=== PATIENT | male | born 1935 | race Caucasian/White ===

== ENCOUNTER 2017-07-18 05:45 | Emergency (ER) | payer OTHER ==
[2017-07-18 06:03] VITALS: BP 138/72; TEMP 98.1; O2SAT 97
--- NOTE | 2017-07-18 06:30 | ED.PDOC ---
History of Present Illness - General Chief Complaint: General Stated Complaint: feels terrible, thinks he's dehydrated Time Seen by Provider: 07/18/17 06:07 Source: patient Exam Limitations: clinical condition - History of Present Illness Initial Comments: the patient is a 81-year-old male presenting to the emergency room secondary to symptoms of urinary frequency starting yesterday at around p.m. He reports he is having to urinate every 10-15 minutes. He does report some dysuria. No fevers. No back pain. He did tell the nurses that he had some diarrhea but he told me that he did not. He is unsure of his medications. We have no significant records on him here. He does seem to remember some of his medical problems. I'm uncertain at this time what medical history he is leaving out or simply remembering wrong. He reports he has not run out of any medications and that he takes more than a dozen. He does not think that he takes anything for his prostate. No history of bladder dysfunction according to him. Again there does appear to be some mild dementia at least. No fevers. Vital signs are within normal limits. Bladder ultrasound by me after voiding shows approximately 180 cc. Prostate size by transabdominal ultrasound appears to be around 70-80 cc. No back pain. No costovertebral angle tenderness. Again he reports this just started yesterday evening. No blood in the urine. Timing/Duration: unsure Severity: moderate Improving Factors: nothing Worsening Factors: nothing Associated Symptoms: denies symptoms Allergies/Adverse Reactions: Allergies NO KNOWN ALLERGY Allergy (Verified 07/18/17 06:03) Home Medications: Ambulatory Orders Aspirin 11/30/15 Coreg 11/30/15 Digoxin 11/30/15 Furosemide 11/30/15 Lisinopril 11/30/15 Metformin HCl 11/30/15 Oseltamivir Phosphate [Tamiflu] 75 mg PO BID #10 cap 11/30/15 Potassium Chloride 11/30/15 Simvastatin 11/30/15 Vitamin B 12 11/30/15 Vitamin B-6 11/30/15 Vitamin D2 11/30/15 Tamsulosin [Flomax] 0.4 mg PO QD #30 cap 07/18/17 Review of Systems - Review of Systems Constitutional: States: no symptoms reported EENTM: States: no symptoms reported Respiratory: States: no symptoms reported Cardiology: States: no symptoms reported Gastrointestinal/Abdominal: States: no symptoms reported Genitourinary: States: dysuria, frequency Musculoskeletal: States: no symptoms reported Skin: States: no symptoms reported Neurological: States: see HPI - some dementia Endocrine: States: no symptoms reported All other Systems: No Change from Baseline Past Medical History (General) - Patient Medical History Hx Seizures: No Hx Stroke: No Hx Dementia: No Hx Asthma: No Hx of COPD: No Hx Cardiac Disorders: Yes Hx Congestive Heart Failure: No Hx Pacemaker: No Hx Hypertension: No Hx Thyroid Disease: No Hx Diabetes: Yes - boarderline Hx Gastroesophageal Reflux: No Hx Renal Disease: No - hx kidney stone Hx Cancer: No Hx of HIV: No Hx Hepatitis C: No Hx MRSA: No Surgical History: other - Vaccination History Hx Tetanus, Diphtheria Vaccination: No Hx Influenza Vaccination: No Hx Pneumococcal Vaccination: No - Social History Hx Tobacco Use: Yes - quit smoking 1968 Hx Alcohol Use: No Hx Substance Use: No Hx Substance Use Treatment: No Hx Depression: No Family Medical History - Family History Mother Family History: No Known Physical Exam - Physical Exam General Appearance: Alert, Comfortable, No apparent distress Eye Exam: bilateral normal Ears, Nose, Throat: hearing grossly normal, normal ENT inspection, normal pharynx Neck: full range of motion, supple, normal inspection Respiratory: lungs clear, normal breath sounds, no respiratory distress, no accessory muscle use Cardiovascular/Chest: normal peripheral pulses, no edema, other - regular rate Peripheral Pulses: radial,right: 2+, radial,left: 2+, dorsalis pedis,right: 2+, dorsalis pedis,left: 2+ Gastrointestinal/Abdominal: non tender - no abdominal tenderness. No large amount of stool was palpable. No rebound or peritoneal signs. Bladder is not significantly enlarged by palpation. Bladder is not tender to palpation., soft Rectal Exam: deferred Back Exam: normal inspection, no CVA tenderness, no vertebral tenderness Extremity: normal range of motion, non-tender, normal inspection, no pedal edema Neurologic: book shelver II-XII nml as tested, alert, normal mood/affect, other - the patient misses the date by 3 days. Again he is given inconsistent stories between myself and my nurses Skin Exam: normal color Comments: Vital Signs - 24 hr 07/18/17 05:55 Temperature 98.1 F Pulse Rate [ 68 monitor] Respiratory 16 Rate Blood Pressure 138/72 [Left Arm] O2 Sat by Pulse 97 Oximetry Progress - Progress Progress: 07/18/17 06:40 the patient's a 81-year-old male presenting primarily secondary to urinary frequency for less in the last 24 hours. He is having an incomplete void. He is not retaining a lot of urine but he is retaining some. I believe this is due to BPH. Prostate exam shows no evidence of prostatitis but the prostate is significantly enlarged both by exam and transabdominal ultrasound. Urinalysis is clear indicating no significant infection. The patient was given his first dose of Flomax here and will be placed on that daily for the next month. He needs to follow-up with his primary care doctor when he gets back to [place]. He needs to be set up with urology for a more formal evaluation. If at any point he gets to where he cannot urinate or starts having pain in his lower abdomen due to his bladder being unable to void adequately, then he will need to return to the emergency room and have a Zapata catheter placed. he reports that he does understand this. If he does come back to this emergency room it would be helpful if he brought his medications as medications can sometimes have urinary complications. - Results/Orders Results/Orders: Laboratory Tests 07/18/17 06:16 Urine Color Yellow Urine Appearance Clear Urine pH 7.0 Ur Specific Cecil 1.010 Urine Protein Negative Urine Glucose (UA) Negative Urine Ketones Negative Urine Blood Trace-lysed H Urine Nitrite Negative Urine Bilirubin Negative Urine Urobilinogen 0.2 Ur Leukocyte Esterase Negative Urine RBC 0-1 Urine WBC 0 Ur Epithelial Cells 0 Urine Bacteria 0 Departure - Departure Clinical Impression: Benign prostatic hyperplasia with urinary frequency BPH (benign prostatic hyperplasia) Qualifiers: Lower urinary tract symptom detail: urinary frequency Disposition: Discharge to Home or Self Care Condition: Fair Departure Forms: ED Discharge - Pt. Copy, Patient Portal Self Enrollment Instructions: DI for Benign Prostatic Hyperplasia Diet: regular diet Activity: increase activity as tolerated Prescriptions: Tamsulosin [Flomax] 0.4 mg PO QD #30 cap Home Medications: Ambulatory Orders Aspirin 11/30/15 Coreg 11/30/15 Digoxin 11/30/15 Furosemide 11/30/15 Lisinopril 11/30/15 Metformin HCl 11/30/15 Oseltamivir Phosphate [Tamiflu] 75 mg PO BID #10 cap 11/30/15 Potassium Chloride 11/30/15 Simvastatin 11/30/15 Vitamin B 12 11/30/15 Vitamin B-6 11/30/15 Vitamin D2 11/30/15 Tamsulosin [Flomax] 0.4 mg PO QD #30 cap 07/18/17 Additional Instructions: the patient's a 81-year-old male presenting primarily secondary to urinary frequency for less in the last 24 hours. He is having an incomplete void. He is not retaining a lot of urine but he is retaining some. I believe this is due to BPH. Prostate exam shows no evidence of prostatitis but the prostate is significantly enlarged both by exam and transabdominal ultrasound. Urinalysis is clear indicating no significant infection. The patient was given his first dose of Flomax here and will be placed on that daily for the next month. He needs to follow-up with his primary care doctor when he gets back to [place]. He needs to be set up with urology for a more formal evaluation. If at any point he gets to where he cannot urinate or starts having pain in his lower abdomen due to his bladder being unable to void adequately, then he will need to return to the emergency room and have a Zapata catheter placed. he reports that he does understand this. If he does come back to this emergency room it would be helpful if he brought his medications as medications can sometimes have urinary complications.
[2017-07-18] MEDS ORDERED: TAMSULOSIN 0.4 MG CAP PO ONE (06:39)
== END 2017-07-18 06:56 | disposition home or self-care (01) ==
LOC: ER 05:45
DX: N40.1 Benign prostatic hyperplasia with lower urinary tract symptoms (principal); R35.0 Frequency of micturition; E11.9 Type 2 diabetes mellitus without complications; Z87.891 Personal history of nicotine dependence; Z79.899 Other long term (current) drug therapy; Z79.82 Long term (current) use of aspirin